=== PATIENT | male | born 1970 | race Caucasian/White ===

== ENCOUNTER 2017-04-04 18:46 | Emergency (ER) | payer BC ==
[~2017-04-04] VITALS: Ht 195.6 cm; Wt 111.0 kg
[2017-04-04 18:56] VITALS: TEMP 36.9; Ht 195.6 cm; Wt 111.0 kg
[2017-04-04] MEDS ORDERED: SODIUM CHLORIDE 0.9% 1000ML 1,000 ML IV STA (18:59)
[2017-04-04 19:41] LABS: BASO % 0.3 %; BASO ABS # 0.03 K/uL (0-0.2); COMPLETE YES; EOS % 0.3 %; HEMATOCRIT 45.7 % (42-52); IG% 0.4 %; LYMPH % 8.3 %; LYMPH ABS # 0.88 K/uL (1.2-3.4); MEAN CELL VOLUME 93.5 fL (80-100); MEAN CORPUSCULAR HEMOGLOBIN 32.5 pg (25-34); MEAN CORPUSCULAR HGB CONC 34.8 g/dl (32-36); MEAN PLATELET VOLUME 10.5 fL (7.4-10.4); MONO % 9.9 %; NEUT % 80.8 %; PLATELET COUNT 185 K/uL (130-400); RED BLOOD COUNT 4.89 M/uL (4.7-6.1); WHITE BLOOD COUNT 10.62 K/uL (4.8-10.8)
[2017-04-04 20:41] LABS: ALKALINE PHOSPHATASE 73 U/L (45-117); ALT/SGPT 30 U/L (12-78); AST/SGOT 21 U/L (15-37); BLOOD UREA NITROGEN 24 mg/dl (7-18); BUN/CREATININE RATIO 15.6 (10-20); CARBON DIOXIDE 26 mmol/L (21-32); CHLORIDE 106 mmol/L (98-107); CREATININE 1.53 mg/dl (0.60-1.40); GLUCOSE 74 mg/dl (70-99); POTASSIUM 3.6 mmol/L (3.5-5.1); SODIUM 138 mmol/L (136-145)
--- NOTE | 2017-04-04 22:10 | DIAGNOSTIC IMAGING REPORT ---
CT SCAN OF THE ABDOMEN AND PELVIS WITHOUT IV CONTRAST CLINICAL HISTORY: Left lower quadrant abdominal pain. COMPARISON STUDY: No priors. TECHNIQUE: CT scan of the abdomen and pelvis is performed from the lung bases to the proximal femora. Images are reviewed in the axial, sagittal, and coronal planes. IV contrast was not administered for this examination as per the referring clinician. Note that the examination is suboptimal without IV contrast. Oral contrast was utilized. A dose lowering technique was utilized adhering to the principles of ALARA. CT DOSE: 736.07 mGy.cm FINDINGS: Lung bases: The heart is normal in size and without pericardial effusion. The lung bases are clear. Liver: The unenhanced liver is normal in size, contour, and attenuation. There is no intrahepatic biliary ductal dilatation. Gallbladder: Unremarkable. Spleen: Normal in size and attenuation. Pancreas: There is mild fatty atrophy of the pancreas which is otherwise grossly unremarkable. Adrenal glands: Unremarkable. Kidneys: The unenhanced kidneys are normal in size and without hydronephrosis. There are no renal calculi identified. A 6 cm exophytic cyst arises from the lower pole of the right kidney. Abdominal vasculature: The abdominal aorta is normal in course and caliber. Bowel: There is underdistention of the left colon. No pericolonic inflammation is identified. No diverticular disease is observed. No bowel obstruction is seen. The appendix is well-visualized and normal. Peritoneum: There is no intraperitoneal free air or abdominal ascites. Lymphadenopathy: None. Pelvic viscera: The bladder, prostate, and seminal vesicles are normal as imaged.. There is evidence of previous bilateral inguinal herniorrhaphy. Skeletal structures: No lytic or blastic lesions are seen. IMPRESSION: There are no acute infectious or inflammatory findings in the abdomen or pelvis. Electronically signed by: Thiago Hatfield M.D. 04/04/2017 10:08 PM Dictated Date/Time: 04/04/2017 10:03 PM
[2017-04-04 22:34] VITALS: BP 119/71; PULSE 69; O2SAT 93
--- NOTE | 2017-04-05 18:34 | EMERGENCY ROOM VISIT NOTE ---
History Report prepared by Luma: Jhonny Farias Under the Supervision of: Dr. Marcel Srivastava M.D. First contact with patient: 18:52 Chief Complaint: ABDOMINAL PAIN Stated Complaint: AB PAIN History of Present Illness The patient is a 46 year old male who presents to the Emergency Room with complaints of constant generalized abdominal pain beginning one hour ago. He states that his pain initially began in his upper abdomen and has moved downward. He describes his pain as "sharp". The patient states "it feels like gas". He states that he attempted to defecate when he experienced additional symptoms including diaphoresis, bilateral hand numbness, and shortness of breath. He admits to drinking two beers today while tailgating. The patient notes that he had some diarrhea this morning. He denies chest pain, fevers, urinary symptoms, or vomiting. He rates his current pains as a 2/10 in severity. Source of History: patient Onset: One hour ago Position: abdomen (generalized) Quality: sharp, other (gas-like) Timing: constant Associated Symptoms: + diaphoresis (episode), + SOB (episode), + diarrhea ( this morning), No fevers, No chest pain, No vomiting, No urinary symptoms Note: Additional symptoms: bilateral hand numbness. Review of Systems See HPI for pertinent positives & negatives. A total of 10 systems reviewed and were otherwise negative. Past Medical & Surgical Medical Problems: (1) No Known Active Medical Problems Family History No pertinent family history stated. Social History Housing Status: lives with family Current/Historical Medications No Active Prescriptions or Reported Meds Allergies Coded Allergies: No Known Allergies (Unverified , 04/04/17) Physical Exam Vital Signs Date Time Temp Pulse Resp B/P (MAP) Pulse Ox O2 Delivery O2 Flow Rate FiO2 04/04/17 22:34 69 119/71 93 04/04/17 20:43 67 120/75 04/04/17 19:53 68 04/04/17 18:56 36.9 67 142/69 96 Room Air Physical Exam Constitutional: Vital signs reviewed. Eyes: Pupils are equal round reactive to light. Conjunctiva are noninjected. ENT: Pharynx is clear without erythema or exudate. Mucous membranes are moist. Neck supple without meningeal signs. Respiratory: Clear to auscultation bilaterally. Breath sounds are equal bilaterally. Cardiovascular: Regular rate and rhythm. No rubs or gallops. GI: Soft, and nondistended. Bowel sounds are present. LLQ tenderness to palpation. No guarding. No CVA tenderness. Musculoskeletal: No peripheral edema. No lower extremity tenderness. Integumentary: No cyanosis. Neurological: The patient is awake and alert. No focal deficits. Psychiatric: Normal affect. Medical Decision & Procedures ER Provider Diagnostic Interpretation: CT results as stated below per my review and radiologist interpretation. CT SCAN OF THE ABDOMEN AND PELVIS WITHOUT IV CONTRAST FINDINGS: Lung bases: The heart is normal in size and without pericardial effusion. The lung bases are clear. Liver: The unenhanced liver is normal in size, contour, and attenuation. There is no intrahepatic biliary ductal dilatation. Gallbladder: Unremarkable. Spleen: Normal in size and attenuation. Pancreas: There is mild fatty atrophy of the pancreas which is otherwise grossly unremarkable. Adrenal glands: Unremarkable. Kidneys: The unenhanced kidneys are normal in size and without hydronephrosis. There are no renal calculi identified. A 6 cm exophytic cyst arises from the lower pole of the right kidney. Abdominal vasculature: The abdominal aorta is normal in course and caliber. Bowel: There is underdistention of the left colon. No pericolonic inflammation is identified. No diverticular disease is observed. No bowel obstruction is seen. The appendix is well-visualized and normal. Peritoneum: There is no intraperitoneal free air or abdominal ascites. Lymphadenopathy: None. Pelvic viscera: The bladder, prostate, and seminal vesicles are normal as imaged.. There is evidence of previous bilateral inguinal herniorrhaphy. Skeletal structures: No lytic or blastic lesions are seen. IMPRESSION: There are no acute infectious or inflammatory findings in the abdomen or pelvis. Electronically signed by: Thiago Hatfield M.D. 04/04/2017 10:08 PM Laboratory Results 04/04/17 19:30 Red Blood Count 4.89, Mean Corpuscular Volume 93.5, Mean Corpuscular Hemoglobin 32.5, Mean Corpuscular Hemoglobin Concent 34.8, Mean Platelet Volume 10.5, Neutrophils (%) (Auto) 80.8, Lymphocytes (%) (Auto) 8.3, Monocytes (%) (Auto) 9.9, Eosinophils (%) (Auto) 0.3, Basophils (%) (Auto) 0.3, Neutrophils # (Auto) 8.59, Lymphocytes # (Auto) 0.88, Monocytes # (Auto) 1.05, Eosinophils # (Auto) 0.03, Basophils # (Auto) 0.03 04/04/17 19:30 Test 04/04/17 19:30 White Blood Count 10.62 K/uL (4.8-10.8) Red Blood Count 4.89 M/uL (4.7-6.1) Hemoglobin 15.9 g/dL (14.0-18.0) Hematocrit 45.7 % (42-52) Mean Corpuscular Volume 93.5 fL (80-100) Mean Corpuscular Hemoglobin 32.5 pg (25-34) Mean Corpuscular Hemoglobin Concent 34.8 g/dl (32-36) Platelet Count 185 K/uL (130-400) Mean Platelet Volume 10.5 fL (7.4-10.4) Neutrophils (%) (Auto) 80.8 % Lymphocytes (%) (Auto) 8.3 % Monocytes (%) (Auto) 9.9 % Eosinophils (%) (Auto) 0.3 % Basophils (%) (Auto) 0.3 % Neutrophils # (Auto) 8.59 K/uL (1.4-6.5) Lymphocytes # (Auto) 0.88 K/uL (1.2-3.4) Monocytes # (Auto) 1.05 K/uL (0.11-0.59) Eosinophils # (Auto) 0.03 K/uL (0-0.5) Basophils # (Auto) 0.03 K/uL (0-0.2) RDW Standard Deviation 42.5 fL (36.4-46.3) RDW Coefficient of Variation 12.4 % (11.5-14.5) Immature Granulocyte % (Auto) 0.4 % Immature Granulocyte # (Auto) 0.04 K/uL (0.00-0.02) Anion Gap 7.0 mmol/L (3-11) Est Creatinine Clear Calc Drug Dose 82.6 ml/min Estimated GFR () 61.8 Estimated GFR (Non- 53.4 BUN/Creatinine Ratio 15.6 (10-20) Calcium Level 9.0 mg/dl (8.5-10.1) Total Bilirubin 0.4 mg/dl (0.2-1) Direct Bilirubin mg/dl (0-0.2) Aspartate Amino Transf (AST/SGOT) 21 U/L (15-37) Alanine Aminotransferase (ALT/SGPT) 30 U/L (12-78) Alkaline Phosphatase 73 U/L (45-117) Total Protein 8.2 gm/dl (6.4-8.2) Albumin 4.2 gm/dl (3.4-5.0) Lipase 327 U/L (73-393) Chemistry Specimen Hemolysis Laboratory results as reviewed by me. Medications Administered Medications (Trade) Dose Ordered Sig/Mohan Route Start Time Stop Time Status Last Admin Dose Admin Sodium Chloride 1,000 ml @ 999 mls/hr Q1H1M STAT IV 04/04/17 18:59 04/04/17 19:59 DC 04/04/17 18:59 999 MLS/HR ECG Indication: abdominal pain Rate (beats per minute): 61 Rhythm: normal sinus Findings: no acute ischemic change, no ectopy ED Course 1853: The patient was evaluated in room B7. A complete history and physical exam was performed. 1858: Ordered Sodium Chloride 1000 ml @ 999 mls/hr IV. 8: Upon reevaluation, the patient appeared to have improvement of his symptoms. He has no pain on reexamination. I discussed tonight's findings with him. He verbalized agreement of the treatment plan. The patient was discharged home. Medical Decision This is a 46-year-old male who presents with abdominal pain. Differential diagnosis includes diverticulitis, abscess, perforation, kidney stone, pancreatitis. I did perform a limited focused review of portions of the patient 's old chart on the electronic medical record. The patient has had no prior visits to this hospital. I did evaluate the patient as noted above. The patient is having abdominal pain which started about an hour prior to arrival. She states it feels like gas pain. It started in his upper abdomen were done went down into his lower abdomen. On exam he is tender in the left lower quadrant. He denies having any chest pain. He did feel short of breath but he attributes this to the intensity of the pain. Paramedics had reported that the patient was sitting on the toilet and was very diaphoretic and in significant pain. It appeared that the patient was likely having a vagal reaction to the pain. He currently denies any chest pain or shortness of breath. He had some tingling in his hands which was likely from hyperventilation. He does continue to have pain in his left lower quadrant with tenderness. IV access was established. He was treated with normal saline IV. The patient was placed on a continuous environmental services coordinator. I did order and personally review the patient's 12-lead EKG as described above. There is no evidence of acute ischemia. I did order and review the patient's blood work as noted in the electronic medical record. Creatinine is 1.5. This may be normal for him. We do not have any baseline labs to compare this with. I did order a CT of the abdomen and pelvis. I did review the images myself as well as the radiology report as described above. There is no evidence of acute process. On reassessment the patient is feeling much better. He has no pain at this time. His tenderness is gone. I did discuss the test results with the patient. It was recommended he follow closely with his doctor. He was given return instructions as outlined below. Medication Reconcilliation Current Medication List: was personally reviewed by me Blood Pressure Screening Patient's blood pressure: Elevated blood pressure Blood pressure disposition: Elevated BP felt to be situational Impression Primary Impression: Diffuse abdominal pain Scribe Attestation The scribe's documentation has been prepared under my direct and personally reviewed by me in its entirety. I confirm that the note above accurately reflects all work, treatment, procedures, and medical decision making performed by me. Departure Information Dispostion Home / Self-Care Prescriptions No Active Prescriptions or Reported Meds Forms Call Back Authorization, HOME CARE DOCUMENTATION FORM, IMPORTANT VISIT INFORMATION Patient Instructions ED Abdominal Pain Unkn Cause Male, My [facility] Additional Instructions You have been examined and treated today on an emergency basis only. This is not a substitute for, or an effort to provide, complete comprehensive medical care. It is impossible to recognize and treat all injuries or illnesses in a single emergency department visit. It is therefore important that you follow up closely with your physician. Call as soon as possible for an appointment. Return for worsening symptoms or if you develop fever, vomiting, chest pain, shortness of breath or any other concerning symptoms.
== END 2017-04-04 22:35 | disposition home or self-care (01) ==
LOC: EDBD 18:46 → C.EDB 18:48
DX: R10.84 Generalized abdominal pain (principal)